=== PATIENT | male | born 1955 | race Caucasian/White ===

== ENCOUNTER → 2016-05-10 | Outpatient (CLI) | payer BC ==
[~2016-05-10] VITALS: Ht 180.3 cm; Wt 132.7 kg
[~2016-05-10] MED LIST: ASPI-461 PO; BUPRTAB51 PO; CMD5 PO; FLUT0.0529 NAE; LPT/20 PO; SERT1TAB72 PO; TELM5TAB2 PO; WARF7.5T PO
[2016-05-10 15:41] VITALS: BP 143/93; PULSE 76; Ht 180.3 cm; Wt 132.7 kg
== END | disposition home or self-care (01) ==
LOC: C.NEUR 14:18
PROVIDERS: ATTEND Internal Medicine Pulmonary Disease
DX: G47.30 Sleep apnea, unspecified (principal)

== ENCOUNTER → 2016-09-18 | Outpatient (CLI) | payer BC ==
--- NOTE | 2016-09-18 08:38 | DIAGNOSTIC IMAGING REPORT ---
RIGHT SHOULDER MIN 2 VIEWS ROUTINE CLINICAL HISTORY: RT SHOULDER PAIN Right pain COMPARISON: None. DISCUSSION: Significant degenerative change glenohumeral joint. Moderate degenerative change acromioclavicular joint. Retention pain greater tuberosity postoperative basis. Probable Hill-Sachs type deformity. Peripheral osteophytic change throughout. There is no evidence for soft tissue swelling. IMPRESSION: Degenerative and postoperative change. Electronically signed by: Gerson Aguirre M.D. 09/18/2016 8:37 AM Dictated Date/Time: 09/18/2016 8:36 AM
[2016-09-18 13:27] LABS: CALCIUM 9.2 mg/dl (8.5-10.1)
[2016-09-18 13:32] LABS: ALT/SGPT 66 U/L (12-78); BLOOD UREA NITROGEN 19 mg/dl (7-18); BUN/CREATININE RATIO 19.1 (10-20); CARBON DIOXIDE 26 mmol/L (21-32); CHLORIDE 107 mmol/L (98-107); CHOLESTEROL 199 mg/dl (0-200); GLUCOSE 121 mg/dl (70-99); POTASSIUM 4.3 mmol/L (3.5-5.1); SODIUM 141 mmol/L (136-145); TRIGLYCERIDES 251 mg/dl (0-150); VERY LOW DENSITY LIPOPROT CALC 50 mg/dl
[2016-09-18 13:33] LABS: ESTIMATED AVERAGE GLUCOSE 120 mg/dl; HA1C FLAG Normal (Normal)
[2016-09-18 13:40] LABS: ALB/GLOB RATIO 1.2 (0.9-2); ALKALINE PHOSPHATASE 55 U/L (45-117); AST/SGOT 36 U/L (15-37); CHOLESTEROL/HDL RATIO 5.2; HDL CHOLESTEROL 38 mg/dl; LDL CHOLESTEROL CALCULATED 111 mg/dl
== END | disposition home or self-care (01) ==
LOC: C.RADPV 08:20
PROVIDERS: ATTEND Family Medicine
DX: M25.511 Pain in right shoulder (principal); I10 Essential (primary) hypertension; I48.91 Unspecified atrial fibrillation; E78.5 Hyperlipidemia, unspecified; F41.8 Other specified anxiety disorders; I82.409 Acute embolism and thrombosis of unspecified deep veins of unspecified lower extremity; M19.011 Primary osteoarthritis, right shoulder

== ENCOUNTER → 2017-03-18 | Outpatient (CLI) | payer BC ==
[2017-03-18 13:10] LABS: ALT/SGPT 80 U/L (12-78); BLOOD UREA NITROGEN 15 mg/dl (7-18); BUN/CREATININE RATIO 14.7 (10-20); CALCIUM 8.9 mg/dl (8.5-10.1); CARBON DIOXIDE 26 mmol/L (21-32); CHLORIDE 105 mmol/L (98-107); CHOLESTEROL 187 mg/dl (0-200); CREATININE 0.99 mg/dl (0.60-1.40); GLUCOSE 116 mg/dl (70-99); POTASSIUM 4.3 mmol/L (3.5-5.1); SODIUM 137 mmol/L (136-145)
[2017-03-18 13:14] LABS: ALB/GLOB RATIO 1.1 (0.9-2); ALKALINE PHOSPHATASE 61 U/L (45-117); AST/SGOT 38 U/L (15-37); CHOLESTEROL/HDL RATIO 5.1; HDL CHOLESTEROL 37 mg/dl; LDL CHOLESTEROL CALCULATED 94 mg/dl; TRIGLYCERIDES 282 mg/dl (0-150); VERY LOW DENSITY LIPOPROT CALC 56 mg/dl
== END | disposition home or self-care (01) ==
LOC: C.LABPVFM 10:00
PROVIDERS: ATTEND Family Medicine
DX: Z51.81 Encounter for therapeutic drug level monitoring (principal); I10 Essential (primary) hypertension; I48.91 Unspecified atrial fibrillation; G47.30 Sleep apnea, unspecified; E78.5 Hyperlipidemia, unspecified; F41.8 Other specified anxiety disorders; Z79.01 Long term (current) use of anticoagulants

== ENCOUNTER 2017-07-07 13:22 | Emergency (ER) | payer BC ==
[~2017-07-07] VITALS: Ht 180.3 cm; Wt 129.3 kg
[~2017-07-07 13:22] MED LIST changes: -LPT/20 PO; +LPT20 PO
[2017-07-07 13:38] VITALS: BP 215/101; PULSE 81; TEMP 36.6; O2SAT 94; Ht 180.3 cm; Wt 129.3 kg
== END 2017-07-07 16:09 | disposition left against medical advice (07) ==
LOC: C.EDB 13:25
DX: R51 Headache (principal); Z53.21 Procedure and treatment not carried out due to patient leaving prior to being seen by health care provider

== ENCOUNTER → 2017-10-29 | Outpatient (CLI) | payer BC ==
[~2017-10-29] MED LIST changes: +ACET-1693 PO; -CMD5 PO; +DIPH25CA65 PO; +ENOX30IN4 SQ; +FIBER TAB PO; -FLUT0.0529 NAE; +FLUT0.15 INTNAS; +GABAPENTIN PO; +GLUC10007 PO; -LPT20 PO; +MULT-506 PO; +OXYC-57 PO; +ROSU5TAB11 PO; +TURMERIC PO; +VITAMIN D PO; -WARF7.5T PO; +WARF7.5T4 PO
[2017-10-29 12:46] LABS: BASO % 0.6 %; BASO ABS # 0.06 K/uL (0-0.2); EOS % 4.6 %; EOS ABS # 0.46 K/uL (0-0.5); HEMATOCRIT 43.7 % (42-52); HEMOGLOBIN 14.9 g/dL (14.0-18.0); IG# 0.09 K/uL (0.00-0.02); LYMPH % 20.3 %; LYMPH ABS # 2.02 K/uL (1.2-3.4); MEAN CELL VOLUME 93.6 fL (80-100); MEAN CORPUSCULAR HEMOGLOBIN 31.9 pg (25-34); MEAN CORPUSCULAR HGB CONC 34.1 g/dl (32-36); MONO % 8.2 %; MONO ABS # 0.81 K/uL (0.11-0.59); NEUT % 65.4 %; NEUT ABS # 6.49 K/uL (1.4-6.5); PLATELET COUNT 196 K/uL (130-400); RED CELL DISTRIBUTION WIDTH CV 13.8 % (11.5-14.5); RED CELL DISTRIBUTION WIDTH SD 46.4 fL (36.4-46.3); WHITE BLOOD COUNT 9.93 K/uL (4.8-10.8)
[2017-10-29 12:53] LABS: INR 2.3 (0.9-1.1); PTT PATIENT 39.7 SECONDS (21.0-31.0)
[2017-10-29 13:14] LABS: BLOOD UREA NITROGEN 19 mg/dl (7-18); CALCIUM 9.3 mg/dl (8.5-10.1); CARBON DIOXIDE 27 mmol/L (21-32); CREATININE 1.04 mg/dl (0.60-1.40); GLUCOSE 121 mg/dl (70-99); SODIUM 137 mmol/L (136-145)
== END | disposition home or self-care (01) ==
LOC: C.LABBC 09:22
PROVIDERS: ATTEND Orthopaedic Surgery
DX: Z01.812 Encounter for preprocedural laboratory examination (principal); M19.019 Primary osteoarthritis, unspecified shoulder

== ENCOUNTER → 2017-10-30 | Day surgery (SDC) | payer BC ==
[2017-10-29 13:14] VITALS: Ht 180.3 cm; Wt 131.8 kg
[~2017-10-30] VITALS: Ht 180.3 cm; Wt 131.8 kg
[~2017-10-30] MED LIST changes: +ACETAMINOPHEN 1000 MG/100 ML IV IV ONE; +ACETAMINOPHEN IV 1,000 MG in EMPTY BAG 0 ML IV ONE; +ATROPINE SULFATE 0.1 MG/ML 5ML SYR IV PRN; +CEFAZOLIN 1000MG IV PUSH 7.5 ML IV SCH; +CEFAZOLIN 3000MG IV PUSH 22.5 ML IV STA; +DEXAMETHASONE SOD INJ 4 MG/ML VIAL ONE; +EpHEDrine SULFATE INJ 50 MG/ML AMP IV PRN; +EpINEphrine INJ 1MG/ML AMP 1 MG/ML AMP ONE; +FENTANYL CITRATE INJ 50 MCG/1 ML 2 ML VIAL ONE; +LACTATED RINGER'S 1000ML 1,000 ML IV SCH; +LIDOCAINE HCL 2% 2 ML VIAL (20MG/ML) ONE; +MIDAZOLAM HCL 1 MG/ML 2ML VIAL ONE; +ONDANSETRON INJ 2 MG/ML 2 ML VIAL IV PRN; +ONDANSETRON INJ 2 MG/ML 2 ML VIAL ONE; +OXYCODONE/ACETAMINOPHEN 5-325 TAB PO PRN; +PATIENT'S HEIGHT AND/OR WEIGHT NEEDED SCH; +PHENYLEPHRINE 100MCG/ML 5ML SYR IV PRN; +PROPOFOL IV EMULSION 10 MG/ML 20 ML VIAL ONE; +ROPIVACAINE 0.5% 5 MG/ML 30 ML VIAL ONE; +SCOPOLAMINE 1.5 MG TDSY TD ONE; +SODIUM CHLORIDE 0.9% 1000ML 1,000 ML IV SCH
--- NOTE | 2017-10-30 12:12 | History & Physical Bridge Note ---
H&P Re-Evaluation Bridge Note: I have examined the patient, reviewed the History & Physical and in the interval since the performance of the History & Physical I have noted the following changes of clinical significance: No changes noted
--- NOTE | 2017-10-30 13:55 | [facility] Post Operative Brief Note ---
Immediate Operative Summary Operative Date Oct 30, 2017. Pre-Operative Diagnosis Right Shoulder Hematoma Post-Operative Diagnosis Same Procedure(s) Performed Right Shoulder Hematoma Evacuation Surgeon Dr. August [employer] Plant Operator Surgeon(s) Sean North PA-C Estimated Blood Loss 5 ml Findings Consistent with Post-Op Diagnosis Specimens None Anesthesia Type General
--- NOTE | 2017-10-30 14:08 | Discharge Instructions-SurgCtr ---
Discharge Instructions Date of Service Oct 30, 2017. Visit Reason for Visit: Right Shoulder Hematoma Discharge Discharge Diagnosis / Problem: SAME ABOVE Discharge Goals Goal(s): Decrease discomfort, Improve function Medications Stopped Medications Name(s): warfarin, lovenox Restart Stopped Medication(s): MAY CONTINUE 10/30/2017 Activity Recommendations Activity Limitations: as noted below Lifting Limitations: until after follow-up appointment Shower/Bathe: tomorrow Anesthesia . Post Anesthesia Instructions: If you have had General Anesthesia or IV Sedation: * Do not drive today. * Resume driving when surgeon permits. * Do not make important decisions or sign legal documents today. * Call surgeon for: 1. Temperature elevations greater than 101 degrees F. 2. Uncontrollable pain. 3. Excessive bleeding. 4. Persistent nausea and vomiting. 5. Medication intolerance (nausea, vomiting or rash). * For nausea and vomiting use only clear liquids such as: tea, soda, bouillon until nausea subsides, then gradually increase diet as tolerated. * If you have any concerns or questions, call your surgeon's office. If physician is unavailable and it is an emergency, call 911 or go to the nearest emergency room. . Instructions / Follow-Up Instructions / Follow-Up MEDICATIONS: * Resume previous medications unless instructed otherwise by your surgeon. * Always take pain medication on a full stomach or with food to avoid upset stomach. * Do not drink alcohol or drive while taking narcotics. * Ibuprofen or Tylenol may be taken if narcotic not needed. SPECIAL CARE INSTRUCTIONS: __ None _X_ Keep extremity elevated and iced x 48 hours; apply ice 20-30 minutes 8-10 times/day. May remove at night. _X_ Sling (MAY REMOVE IN 1 WEEK OR WHEN YOU ARE 3 WEEKS OUT FROM THE DAY OF SHOULDER REPLACEMENT) _X_24 hrs/day __ Remove at night __ Shoulder Immobilizer __ 24 hrs/day __ Remove at night X__ Dressing __ Maintain until seen in office, may shower with plastic over site _X_ Remove dressings in 24-48 hours and then may shower _X_ Cover incisions with band-aids after showering __ Do not remove steri-strips Call physician if chills or temperature rises above 102 degrees or pain unrelieved by prescribed pain medications at . . Diet Recommendations Home Diet: no limitations Fluid Restriction: None Procedures Procedures Performed: Right Shoulder Hematoma Evacuation Pending Studies Studies pending at discharge: no Work Instructions Return To Work: after follow-up Medical Emergencies . Who to Call and When: Medical Emergencies: If at any time you feel your situation is an emergency, please call 911 immediately. . Non-Emergent Contact Non-Emergency issues call your: Surgeon Call Non-Emergent contact if: your pain is not controlled, wound has increased drainage, wound has increased redness . . "Provider Documentation" section prepared by Justin North. .
[2017-10-30] MEDS: FENTANYL CITRATE INJ 50 MCG/1 ML 2 ML VIAL IV PRN ×4 (14:18→14:35)
[2017-10-30] MEDS: HYDROmorphone INJ 1 MG/ML SYR IV PRN ×4 (14:51→15:20)
--- NOTE | 2017-10-30 15:15 | OPERATIVE REPORT ---
DATE OF OPERATION: 10/30/2017 PREOPERATIVE DIAGNOSIS: Hematoma of the right shoulder. POSTOPERATIVE DIAGNOSIS: Hematoma of the right shoulder. PROCEDURE: Evacuation of hematoma of the right shoulder. SURGEON: Dr. Giovani August. VICE PRESIDENT OF CONSULTING SERVICES: Justin North PA-C, whose assistance was necessary for retraction and closure. ANESTHESIA: General. COMPLICATIONS: None. CONDITION: Stable to PACU. INDICATIONS: Ty is a pleasant 62-year-old male who underwent a reverse right shoulder arthroplasty about 2 weeks ago. He is on Coumadin. Unfortunately, postoperatively he developed a large hematoma in his right shoulder. It then started draining. I decided to take him to the operating room to do evacuation of the hematoma. DESCRIPTION OF PROCEDURE: On 10/30/2017, he arrived at [facility] for the above procedure. He was seen in the preoperative holding and the operative extremity was identified and signed. He was taken back to the operating room, laid on the table in supine position and given general anesthesia. He was then put into the beach chair position. The right shoulder was prepped and draped in sterile fashion. Time-out was done and the patient's operative extremity was properly identified. All the catrachito were removed. Then, the middle third of the incision was opened up. I was able to do a large evacuation of the hematoma. There was a large amount of hematoma and blood clots that were evacuated from the wound. Three liters of normal saline solution and pulse lavage was used to ensure the hematoma was completely evacuated. The shoulder was put through a full range of motion and everything felt stable. There was no further bleeding. The incision was then closed with 2-0 Vicryl suture and catrachito. He was then placed in a soft dressing and a regular arm sling. He was then extubated, transferred to a [facility] and taken to the postanesthesia care unit in stable condition. He tolerated the procedure well. I attest to the content of the Intraoperative Record and any orders documented therein. Any exception s are noted below.
--- NOTE | 2017-10-30 15:42 | Anesthesia Progress Nt - [facility] ---
Anesthesia Post Op Note Date & Time Oct 30, 2017 at 15:42 Vital Signs Pain Intensity: 6 Vital Signs Past 12 Hours Date Time Temp Pulse Resp B/P (MAP) Pulse Ox O2 Delivery O2 Flow Rate FiO2 10/30/17 15:21 114/60 10/30/17 15:19 76 13 10/30/17 15:19 73 13 95 10/30/17 15:16 132/69 10/30/17 15:14 72 15 94 10/30/17 15:14 72 15 10/30/17 15:11 116/91 10/30/17 15:09 67 15 93 10/30/17 15:09 68 15 10/30/17 15:06 113/67 10/30/17 15:04 68 14 10/30/17 15:04 67 14 93 10/30/17 15:01 112/82 10/30/17 14:59 68 11 95 10/30/17 14:59 69 11 10/30/17 14:58 70 14 10/30/17 14:58 69 14 94 10/30/17 14:56 125/67 10/30/17 14:53 74 16 10/30/17 14:53 76 16 97 10/30/17 14:51 140/59 10/30/17 14:48 70 21 95 10/30/17 14:48 71 21 10/30/17 14:46 124/62 10/30/17 14:43 70 13 10/30/17 14:43 69 13 96 10/30/17 14:42 79 15 122/60 96 10/30/17 14:42 81 15 10/30/17 14:37 69 16 10/30/17 14:37 68 16 95 18 14:36 122/89 10/30/17 14:32 73 20 18 14:32 73 20 96 18 14:31 134/72 18 14:27 71 15 96 18 14:27 71 15 18 14:26 134/67 218 14:23 68 11 99 218 14:23 69 11 18 14:21 134/77 10/30/17 14:18 74 16 18 14:18 75 16 100 18 14:17 70 16 100 10/30/17 14:17 70 16 10/30/17 14:16 142/72 10/30/17 14:12 72 20 10/30/17 14:12 73 20 99 10/30/17 14:11 137/79 10/30/17 14:08 74 17 100 10/30/17 14:08 75 17 10/30/17 14:06 152/82 10/30/17 14:04 155/79 10/30/17 14:03 36.3 76 12 155/79 99 Mask 10 10/30/17 12:06 37.0 94 20 158/94 (115) 95 Room Air Notes Mental Status: alert / awake / arousable, participated in evaluation Pt Amnestic to Procedure: Yes Nausea / Vomiting: adequately controlled Pain: adequately controlled Airway Patency, RR, SpO2: stable & adequate BP & HR: stable & adequate Hydration State: stable & adequate Anesthetic Complications: no major complications apparent
[2017-10-30 15:51] VITALS: TEMP 36.5
[2017-10-30 16:29] VITALS: BP 157/87; PULSE 70; O2SAT 94
== END | disposition home or self-care (01) ==
LOC: X.SURG 11:49
PROVIDERS: ATTEND Orthopaedic Surgery
DX: M96.840 Postprocedural hematoma of a musculoskeletal structure following a musculoskeletal system procedure (principal); I10 Essential (primary) hypertension; F32.9 Major depressive disorder, single episode, unspecified; D68.2 Hereditary deficiency of other clotting factors; I48.91 Unspecified atrial fibrillation; G47.33 Obstructive sleep apnea (adult) (pediatric); Z91.040 Latex allergy status; Z88.5 Allergy status to narcotic agent; Z79.01 Long term (current) use of anticoagulants; Z79.899 Other long term (current) drug therapy; Z79.82 Long term (current) use of aspirin; Z86.73 Personal history of transient ischemic attack (TIA), and cerebral infarction without residual deficits; Z86.718 Personal history of other venous thrombosis and embolism

== ENCOUNTER → 2017-11-04 | Outpatient (CLI) | payer BC ==
[~2017-11-04] MED LIST changes: -ACETAMINOPHEN 1000 MG/100 ML IV IV ONE; -ACETAMINOPHEN IV 1,000 MG in EMPTY BAG 0 ML IV ONE; -ATROPINE SULFATE 0.1 MG/ML 5ML SYR IV PRN; -CEFAZOLIN 1000MG IV PUSH 7.5 ML IV SCH; -CEFAZOLIN 3000MG IV PUSH 22.5 ML IV STA; -DEXAMETHASONE SOD INJ 4 MG/ML VIAL ONE; -EpHEDrine SULFATE INJ 50 MG/ML AMP IV PRN; -EpINEphrine INJ 1MG/ML AMP 1 MG/ML AMP ONE; -FENTANYL CITRATE INJ 50 MCG/1 ML 2 ML VIAL ONE; -LACTATED RINGER'S 1000ML 1,000 ML IV SCH; -LIDOCAINE HCL 2% 2 ML VIAL (20MG/ML) ONE; -MIDAZOLAM HCL 1 MG/ML 2ML VIAL ONE; -ONDANSETRON INJ 2 MG/ML 2 ML VIAL IV PRN; -ONDANSETRON INJ 2 MG/ML 2 ML VIAL ONE; -OXYCODONE/ACETAMINOPHEN 5-325 TAB PO PRN; -PATIENT'S HEIGHT AND/OR WEIGHT NEEDED SCH; -PHENYLEPHRINE 100MCG/ML 5ML SYR IV PRN; -PROPOFOL IV EMULSION 10 MG/ML 20 ML VIAL ONE; -ROPIVACAINE 0.5% 5 MG/ML 30 ML VIAL ONE; -SCOPOLAMINE 1.5 MG TDSY TD ONE; -SODIUM CHLORIDE 0.9% 1000ML 1,000 ML IV SCH
--- NOTE | 2017-11-04 13:16 | DIAGNOSTIC IMAGING REPORT ---
R VENOUS DOPPLER UPR EXT UNIL HISTORY: Pain. Edema. HX OF DVT'S POSSIBLE DVT RIGHT ELBOW AREA COMPARISON STUDY: None. FINDINGS: The internal jugular vein is patent. There is normal flow within the subclavian vein. There is normal flow and compressibility within the left axillary, basilic, brachial, radial, ulnar, and visualized cephalic veins. IMPRESSION: No DVT within the upper extremity. The above report was generated using voice recognition software. It may contain grammatical, syntax or spelling errors. Electronically signed by: Gerson Aguirre M.D. 11/04/2017 1:14 PM Dictated Date/Time: 11/04/2017 1:12 PM
== END | disposition home or self-care (01) ==
LOC: C.ULTRBC 10:22
PROVIDERS: ATTEND Orthopaedic Surgery
DX: Z86.718 Personal history of other venous thrombosis and embolism (principal)

== ENCOUNTER 2019-12-14 08:01 | Observation (INO) ==
[2019-12-14] MEDS ORDERED: NITROGLYCERIN SL 0.4 MG/TAB TAB SL PRN (08:31)
[2019-12-14 08:55] LABS: Basophils # (auto) 0.03 K/uL (0-0.2); Basophils % (auto) 0.5 %; Eosinophils # (auto) 0.26 K/uL (0-0.5); Hematocrit (blood only) 46.2 % (42-52); Hemoglobin 15.9 g/dL (14.0-18.0); Immature Granulocytes # (auto) 0.01 K/uL (0.00-0.02); Immature Granulocytes % (auto) 0.2 %; Lymphocytes # (auto) 2.03 K/uL (1.2-3.4); Lymphocytes % (auto) 30.9 %; Mean Corpuscular Hemoglobin 31.7 pg (25-34); Mean Corpuscular Hgb Conc 34.4 g/dL (32-36); Mean Corpuscular Volume 92.2 fL (80-100); Mean Platelet Volume 11.7 fL (7.4-10.4); Monocytes # (auto) 0.73 K/uL (0.11-0.59); Monocytes % (auto) 11.1 %; Neutrophils # (auto) 3.51 K/uL (1.4-6.5); Neutrophils % (auto) 53.3 %; Platelet Count 159 K/uL (130-400); RDW Coefficient of Variation 13.3 % (11.5-14.5); RDW Standard Deviation 44.4 fL (36.4-46.3); Red Blood Count 5.01 M/uL (4.7-6.1); White Blood Count 6.57 K/uL (4.8-10.8)
--- NOTE | 2019-12-14 08:55 | XRay Report ---
XR chest 1V portable CLINICAL HISTORY: Chest Pain COMPARISON STUDY: Chest radiograph September 29, 2017. FINDINGS: Right shoulder arthroplasty is incidentally noted. There is no pneumothorax or pleural effu aime. There is no consolidation or evidence for pulmonary edema. Moderate cardiomegaly is unchanged. There is pulmonary vascular congestion. IMPRESSION: Cardiomegaly. Pulmonary vascular congestion without overt pulmonary edema. ACT 112: Negative or not required by law. Electronically signed by: Jasmeet Pires M.D. 12/14/2019 8:53 AM
[2019-12-14 09:09] LABS: INR 2.2 (0.9-1.1); Partial Thromboplastin Ratio 1.4; Partial Thromboplastin Time 39.9 Seconds (21.0-31.0); Prothrombin Time 22.4 Seconds (9.0-12.0)
[2019-12-14 09:11] LABS: Alanine Aminotransferase 75 U/L (12-78); Albumin Level 3.4 gm/dl (3.4-5.0); Aspartate Aminotransferase 43 U/L (15-37); BUN Creatinine Ratio 17.1 (10-20); Blood Urea Nitrogen 17 mg/dl (7-18); Calcium 9.3 mg/dl (8.5-10.1); Carbon Dioxide 25 mmol/L (21-32); Chloride 106 mmol/L (98-107); Creatinine Clr Calc Pharmacy 107.9 ml/min; Est GFR (African American) 94.2; Est GFR (Non-African American) 81.3; Glucose 121 mg/dl (70-99); Lipase 216 U/L (73-393); Potassium 4.3 mmol/L (3.5-5.1); Sodium 138 mmol/L (136-145)
[2019-12-14 09:12] LABS: D Dimer 1780 ug/L FEU (0-500)
[2019-12-14 09:16] LABS: Albumin Globulin Ratio 0.9 (0.9-2); Alkaline Phosphatase 60 U/L (45-117); Bilirubin,Total 0.5 mg/dl (0.2-1); Creatine Kinase 99 U/L (39-308); Creatine Kinase MB 1.7 ng/ml (0.5-3.6); Globulin 3.8 gm/dl (2.5-4.0); Total Protein 7.2 gm/dl (6.4-8.2); Troponin I < 0.015 ng/ml (0-0.045)
--- NOTE | 2019-12-14 09:18 | Emergency Department Note ---
History of Present Illness General Chief complaint: Chest Pain Stated complaint: CHEST PAINS,SOB Time Seen by Provider: 12/14/19 08:08 History of Present Illness Maximum Pain Intensity: 3 64-year-old male, history of factor V Leiden, hypertension, diabetes, hyperlipidemia (metabolic syndrome) who presents to the emergency department with complaint of central chest discomfort and shortness of breath upon awakening this morning. The patient reports that at approximately 5:30 AM, he got up to go to the restroom. When he got back to his bedroom, he reported feeling notable shortness of breath. The patient does use BiPAP at nighttime. The patient had no relief of his shortness of breath with the BiPAP. He then started to develop central chest discomfort and pain that he describes as pressure. He denies any pain radiating into the neck, shoulder or back. The patient reports that he has been on Coumadin for many years. He does not get his INRs checked, reporting high cost due to poor insurance coverage. The patient purchased a voice to check his INR, and reports that he usually runs around 2.4. The patient denies prior history of pulmonary emboli or myocardial infarction. He has a very strong family history of coronary artery disease, with his father and grandfather dying in their 50s as a result of myocardial infarctions. The patient reports that his family has been extensively checked for factor V Leiden and have been normal. The patient currently rates his discomfort a 5 out of 10 on my exam. Home Medications Home Medications Medication Instructions Recorded Confirmed Type glucosamine HCl 750 mg tablet 1,500 mg PO HS tab 10/12/18 12/14/19 History aspirin 81 mg tablet,delayed 81 mg PO BID tab 02/01/19 12/14/19 History release diphenhydramine HCl 25 mg tablet 25 mg PO HS tab 02/01/19 12/14/19 History metformin 500 mg PO QAM 04/25/19 12/14/19 History bupropion HCl 150 mg PO QAM 12/14/19 12/14/19 History rosuvastatin 5 mg PO 2XWK 12/14/19 12/14/19 History sertraline 100 mg PO HS 12/14/19 12/14/19 History telmisartan 30 mg PO QAM 12/14/19 12/14/19 History warfarin 7.5 mg PO HS 12/14/19 12/14/19 History Allergies Allergy/AdvReac Type Severity Reaction Status Date / Time nickel Allergy Mild RASH Verified 12/14/19 08:51 latex AdvReac Mild RASH, Verified 12/14/19 08:51 ITCHING oxycodone AdvReac Mild rapid hr Verified 12/14/19 08:51 Past Med/Surg History Medical History AF (paroxysmal atrial fibrillation) Cellulitis of left foot Depression with anxiety DM (diabetes mellitus), type 2 DVT (deep venous thrombosis) Factor V Leiden mutation HTN (hypertension) Hyperlipidemia Sleep apnea Trigeminal neuralgia Surgical History Hx of carpal tunnel repair Hx of knee surgery Hx of oral surgery Hx of shoulder replacement Hx of shoulder surgery Hx of sinus surgery Family History Father Myocardial infarction Denies family history of Ovarian cancer Prostate cancer Breast cancer Colorectal cancer Social History Smoking Status: Former smoker Tobacco Type: Cigarettes Hx Alcohol Use: No Hx Substance Use: No Preferred Language: Macanese Investment Fund Manager Required: No Beliefs That Will Affect Care: None marital status: Current Living Situation: Spouse current occupational status: employed Other Information That Helps Us Care for You: No Feels Safe at Home: Yes Safety Concerns: Feels Safe At This Time caffeine: Yes Dental Care, Regularly: No Physical Activity Frequency: 1-2 Times per Week Seatbelt Use: always Sunscreen Use: No Review of Systems 10 system review was performed and was negative except for pertinent positives and negatives as indicated in history of present illness Physical Exam Vital Signs Vital Signs - 24 hr 12/14/19 08:04 12/14/19 08:45 12/14/19 09:03 Temperature 36.5 C Temperature Source Oral Pulse Rate 66 Pulse Rate [Apical] 66 Respiratory Rate 20 20 Blood Pressure 202/110 H Blood Pressure [Left Arm] 198/128 H Blood Pressure Mean 140 Blood Pressure Mean [Left Arm] 151 Pulse Oximetry 94 96 96 Oxygen Delivery Method Room Air Room Air Room Air Sepsis Recent Fever Within 48 Hours No Sepsis New/Unexplained Change in Mental Status N/A Sepsis Action Taken by Nursing No Action Required 12/14/19 10:02 12/14/19 10:44 12/14/19 11:05 Temperature Temperature Source Pulse Rate Pulse Rate [Apical] 61 54 L 62 Respiratory Rate 20 20 16 Blood Pressure Blood Pressure [Left Arm] 149/87 H 178/93 H 161/84 H Blood Pressure Mean Blood Pressure Mean [Left Arm] 107 121 109 Pulse Oximetry 94 95 95 Oxygen Delivery Method Room Air Room Air Room Air Sepsis Recent Fever Within 48 Hours Sepsis New/Unexplained Change in Mental Status Sepsis Action Taken by Nursing 12/14/19 11:20 12/14/19 12:15 12/14/19 12:33 Temperature Temperature Source Pulse Rate Pulse Rate [Apical] 67 64 67 Respiratory Rate 20 16 20 Blood Pressure Blood Pressure [Left Arm] 174/102 H 174/108 H 167/108 H Blood Pressure Mean Blood Pressure Mean [Left Arm] 126 130 127 Pulse Oximetry 97 95 96 Oxygen Delivery Method Room Air Room Air Room Air Sepsis Recent Fever Within 48 Hours Sepsis New/Unexplained Change in Mental Status Sepsis Action Taken by Nursing CONSTITUTIONAL: Healthy and well nourished. Alert and oriented X 3. Patient appears in mild to moderate discomfort. HEENT: Normocephalic, atraumatic. Pupils equal, round and reactive. No scleral icterus or conjunctival injection/pallor. Mucous membranes are not dry. NECK: Full active range of motion without discomfort. No obvious JVD or carotid bruits. LYMPHATICS: No cervical chain adenopathy. RESPIRATORY: Clear to auscultation bilaterally with no wheezing, crackles, rhonchi or stridor. Mildly worsened discomfort with deep breathing. CARDIOVASCULAR: Regular rate and rhythm with no murmurs, rubs or gallops. GASTROINTESTINAL: Bowel sounds present in all quadrants. Abdomen is soft and nontender to palpation. No hepatosplenomegaly. Negative CVA tenderness. MUSCULOSKELETAL: Full range of motion of all joints without discomfort. INTEGUMENTARY: No rash or other significant dermatologic conditions noted. HEMATOLOGIC: No ecchymosis or petechiae. PSYCHIATRIC: Positive affect. NEUROLOGIC: No focal neurologic deficits noted. Course Course Patient history and physical exam were performed. Nurse's notes were reviewed. Vital signs were reviewed, showing the patient reports that he did not take his morning blood pressure medicine. Prior to my exam, an ECG was performed, showing a normal sinus rhythm of 65 bpm without any other concerning findings. An order was placed for cardiac monitoring while in the emergency department. I V access was established, and labs were drawn. The patient was administered aspirin. A nitroglycerin trial was initiated, however the patient could only tolerate 1 dose as it caused headache. It did not improve his chest pain. The case was also discussed with Dr. Kerr, ED attending physician, who recommended administering IV hydralazine and the patient's morning dose of telmisartan. Review of labs showed that CBC is grossly normal. CMP shows an elevated AST and glucose, otherwise remaining labs were grossly normal. Urinalysis was also ordered, but the patient was unable to provide a urine sample while in the emergency department. D-dimer was elevated, prompting chest CT angiography did not show evidence for pulmonary emboli, consolidations, pericarditis or other acute findings. Repeat ECG and troponin at 2 hours continues to remain normal. Findings were discussed with the patient. The patient does have a calculated HEART score of 3-4, and after further discussion with Dr. Bloom, it was agreed that the patient should undergo further cardiac rule out with the hospitalist se nolan. The case was discussed with Dr. Higgins, [facility] hospitalist, who came to the emergency department to evaluate the patient. See his dictation for further treatment and final disposition. Administered Medications Acetaminophen (Acetaminophen 325 Mg Tab) 650 mg PO Q4H PRN PRN Reason: Pain or Fever Stop: 01/13/20 15:36 Last Admin: 12/14/19 17:24 Dose: 650 mg Documented by: [id number] Insulin Aspart (Insulin Aspart 100 Units/Ml 3 Ml Pen) 0 units SC ACHS REBECCA Stop: 01/13/20 16:29 Last Admin: 12/14/19 18:01 Dose: Not Given Documented by: [id number] Cosigned by: [id number] Discontinued Medications Aspirin (Aspirin 81 Mg Chew) 243 mg PO NOW STA Stop: 12/14/19 13:52 Last Admin: 12/14/19 16:22 Dose: Not Given Documented by: [id number] Hydralazine HCl (Hydralazine Hcl 20 Mg/Ml Vial) 10 mg IV NOW STA Stop: 12/14/19 09:38 Last Admin: 12/14/19 11:04 Dose: 10 mg Documented by: [id number] Ioversol (Optiray 320 125ml) 120 ml IV ONCE ONE Stop: 12/14/19 10:03 Last Admin: 12/14/19 10:04 Dose: 120 ml Documented by: [id number] Nitroglycerin (Nitroglycerin Sl 0.4 Mg/Tab Tab) 0.4 mg SL UD PRN PRN Reason: Chest Pain Stop: 01/13/20 08:30 Last Admin: 12/14/19 09:03 Dose: 0.4 mg Documented by: [id number] Telmisartan (Telmisartan 20 Mg Tab) 20 mg PO NOW STA Stop: 12/14/19 09:38 Last Admin: 12/14/19 11:03 Dose: 20 mg Documented by: [id number] Medical Decision Making Medical Records Attestation: I reviewed the patient's medical records. Home Medications Current Medication List: was personally reviewed by me Laboratory Data Attestation: I reviewed the patient's lab results. Result diagrams: 12/14/19 08:30 12/14/19 08:30 Lab Results 12/14/19 12/14/19 12/14/19 Range/Units 08:30 08:30 08:30 WBC 6.57 (4.8-10.8) K/uL RBC 5.01 (4.7-6.1) M/uL Hgb 15.9 (14.0-18.0) g/dL Hct 46.2 (42-52) % MCV 92.2 (80-100) fL MCH 31.7 (25-34) pg MCHC 34.4 (32-36) g/dL RDW Std Deviation 44.4 (36.4-46.3) fL RDW Coeff of Garret 13.3 (11.5-14.5) % Plt Count 159 (130-400) K/uL MPV 11.7 H (7.4-10.4) fL Immature Gran % (Auto) 0.2 % Neut % (Auto) 53.3 % Lymph % (Auto) 30.9 % Coal % (Auto) 11.1 % Eos % (Auto) 4.0 % Baso % (Auto) 0.5 % Neut # (Auto) 3.51 (1.4-6.5) K/uL Lymph # (Auto) 2.03 (1.2-3.4) K/uL Coal # (Auto) 0.73 H (0.11-0.59) K/uL Eos # (Auto) 0.26 (0-0.5) K/uL Baso # (Auto) 0.03 (0-0.2) K/uL Immature Gran # (Auto) 0.01 (0.00-0.02) K/uL PT 22.4 H (9.0-12.0) Seconds INR 2.2 H (0.9-1.1) APTT 39.9 H (21.0-31.0) Seconds PTT Ratio 1.4 D-Dimer 1780 H* (0-500) ug/L FEU Sodium 138 (136-145) mmol/L Potassium 4.3 (3.5-5.1) mmol/L Chloride 106 (98-107) mmol/L Carbon Dioxide 25 (21-32) mmol/L Anion Gap 7.0 (3-11) BUN 17 (7-18) mg/dl Creatinine 0.99 (0.6-1.4) mg/dl Est Cr Clr Drug Dosing 107.9 ml/min Est GFR ( Amer) 94.2 Est GFR (Non-Af Amer) 81.3 BUN/Creatinine Ratio 17.1 (10-20) Glucose 121 H (70-99) mg/dl Calcium 9.3 (8.5-10.1) mg/dl Total Bilirubin 0.5 (0.2-1) mg/dl AST 43 H (15-37) U/L ALT 75 (12-78) U/L Alkaline Phosphatase 60 (45-117) U/L Total Creatine Kinase 99 (39-308) U/L CK-MB (CK-2) 1.7 (0.5-3.6) ng/ml CK/CKMB % Calc 1.7 (0-3.0) Troponin I < 0.015 (0-0.045) ng/ml Total Protein 7.2 (6.4-8.2) gm/dl Albumin 3.4 (3.4-5.0) gm/dl Globulin 3.8 (2.5-4.0) gm/dl Albumin/Globulin Ratio 0.9 (0.9-2) Lipase 216 (73-393) U/L 12/14/19 Range/Units 10:46 WBC (4.8-10.8) K/uL RBC (4.7-6.1) M/uL Hgb (14.0-18.0) g/dL Hct (42-52) % MCV (80-100) fL MCH (25-34) pg MCHC (32-36) g/dL RDW Std Deviation (36.4-46.3) fL RDW Coeff of Garret (11.5-14.5) % Plt Count (130-400) K/uL MPV (7.4-10.4) fL Immature Gran % (Auto) % Neut % (Auto) % Lymph % (Auto) % Coal % (Auto) % Eos % (Auto) % Baso % (Auto) % Neut # (Auto) (1.4-6.5) K/uL Lymph # (Auto) (1.2-3.4) K/uL Coal # (Auto) (0.11-0.59) K/uL Eos # (Auto) (0-0.5) K/uL Baso # (Auto) (0-0.2) K/uL Immature Gran # (Auto) (0.00-0.02) K/uL PT (9.0-12.0) Seconds INR (0.9-1.1) APTT (21.0-31.0) Seconds PTT Ratio D-Dimer (0-500) ug/L FEU Sodium (136-145) mmol/L Potassium (3.5-5.1) mmol/L Chloride (98-107) mmol/L Carbon Dioxide (21-32) mmol/L Anion Gap (3-11) BUN (7-18) mg/dl Creatinine (0.6-1.4) mg/dl Est Cr Clr Drug Dosing ml/min Est GFR ( Amer) Est GFR (Non-Af Amer) BUN/Creatinine Ratio (10-20) Glucose (70-99) mg/dl Calcium (8.5-10.1) mg/dl Total Bilirubin (0.2-1) mg/dl AST (15-37) U/L ALT (12-78) U/L Alkaline Phosphatase (45-117) U/L Total Creatine Kinase (39-308) U/L CK-MB (CK-2) (0.5-3.6) ng/ml CK/CKMB % Calc (0-3.0) Troponin I < 0.015 (0-0.045) ng/ml Total Protein (6.4-8.2) gm/dl Albumin (3.4-5.0) gm/dl Globulin (2.5-4.0) gm/dl Albumin/Globulin Ratio (0.9-2) Lipase (73-393) U/L Imaging Data Attestation: I personally reviewed and interpreted this imaging study as mic addison: My Impression: My interpretation of a portable chest x-ray does not show any consolidations or pneumothorax. Cardiomegaly is noted without obvious failure pattern, although pulmonary vascular congestion is noted. CT angiography of the chest did not show any evidence for pulmonary emboli, pneumonia, pneumothorax or other acute findings. Radiologist reports were also reviewed. Radiologist's Impression: XR chest 1V portable CLINICAL HISTORY: Chest Pain COMPARISON STUDY: Chest radiograph September 29, 2017. FINDINGS: Right shoulder arthroplasty is incidentally noted. There is no pneumothorax or pleural effusion. There is no consolidation or evidence for pulmonary edema. Moderate cardiomegaly is unchanged. There is pulmonary vascular congestion. IMPRESSION: Cardiomegaly. Pulmonary vascular congestion without overt pulmonary edema. CT ANGIOGRAPHY OF THE CHEST, PULMONARY EMBOLUS PROTOCOL CLINICAL HISTORY: Shortness of breath and chest pain. Evaluate for pulmonary embolus. COMPARISON STUDY: Chest radiograph December 14, 2019 and September 29, 2017.. TECHNIQUE: Following IV administration of 120 mL of Optiray-320, helical axial images of the chest were obtained utilizing the pulmonary embolus protocol. Maximal intensity projections and sagittal and coronal reformats were viewed on an independent 3D workstation. IV contrast was administered without complication. Automated exposure control was utilized for the study. A dose lowering technique was utilized adhering to the principles of ALARA. CT DOSE: 889.50 mGy.cm FINDINGS: No pulmonary embolus is identified although the segmental and subsegmental pulmonary arteries within the lower lobes are suboptimally assessed due to respiratory motion. There is mild dilatation of the central pulmonary arteries. Moderate cardiomegaly is noted. There is no pericardial effusion. There is moderate coronary artery calcification. Calcified right hilar lymph nodes are noted. There is a calcified granuloma within the right lower lobe. Lungs are suboptimally assessed given respiratory motion but no consolidation is identified. There is no pneumothorax or pleural effusion. Bony thorax is unre markable. Fatty infiltration of the liver is noted. IMPRESSION: 1. No pulmonary embolus identified although lower lobe pulmonary arteries suboptimally assessed given respiratory motion. 2. Moderate cardiomegaly. 3. No acute findings within the chest. 4. Fatty liver. ECG Data Attestation: I personally reviewed and interpreted this ECG as follows: Indication: + chest pain and + SOB/dyspnea Rate (beats per minute): 65 Rhythm: + normal sinus ECG Intervals/blocks: + Normal QRS, + Normal QT and + Normal [place] ECG [place]: + Normal ECG ST segments: + Normal ST segments Comparison ECG Date: from (09/29/2017) Change: no significant change Additional Comments: A second ECG at 2 hours was performed, and personally reviewed by me; however, this ECG could not be found at the time of dictation, and also was not electronically transmitted to the electronic medical records. Blood Pressure Blood Pressure Findings: Elevated blood pressure Blood Pressure Disposition: further management by hospitalist CHACHO Narrative Cardiac monitoring: An order was placed for continuous cardiac monitoring. The monitor shows a rate of 65 with a normal sinus rhythm. night monitor history was reviewed throughout the evaluation, and no dysrhythmias were noted. Patient presents to the emergency department with complaint of chest pain and shortness of breath. The patient does have a significant history of factor V Leiden. Fortunately, no pulmonary emboli are noted on today's CT angiography of the chest. Patient has also had 2 normal serial ECGs and troponin at 2 hours apart, however the patient does have a significant increased risk with multiple comorbidities and strong family history. I do feel that the patient warrants further hospitalist evaluation and cardiac rule out. Impression & Plan Hypertensive urgency, Metabolic syndrome, Central chest pain, SOB (shortness of breath) Discharge Plan Visit Data Chief Complaint: Chest Pain Stated Complaint: CHEST PAINS,SOB ED Provider: Art Bloom ED Midlevel Provider: Carlos A Sood Discharge Problem: Hypertensive urgency, Metabolic syndrome, Central chest pain, SOB (shortness of breath) Patient Disposition: Admitted As Inpatient Discharge Instructions Interventions: ED Discharge Assessment Last Done: 12/14/19 14:22
[2019-12-14] MEDS ORDERED: TELMISARTAN 20 MG TAB PO STA (09:37)
[2019-12-14] MEDS ORDERED: HydrALAZINE HCL 20 MG/ML VIAL IV STA (09:37)
[2019-12-14] MEDS ORDERED: OPTIRAY 320 125ml IV ONE (10:02)
--- NOTE | 2019-12-14 10:07 | CT Scan Report ---
CT ANGIOGRAPHY OF THE CHEST, PULMONARY EMBOLUS PROTOCOL CLINICAL HISTORY: Shortness of breath and chest pain. Evaluate for pulmonary embolus. COMPARISON STUDY: Chest radiograph December 14, 2019 and September 29, 2017.. TECHNIQUE: Following IV administration of 120 mL of Optiray-320, helical axial images of the chest we re obtained utilizing the pulmonary embolus protocol. Maximal intensity projections and sagittal and coronal reformats were viewed on an independent 3D workstation. IV contrast was administered withou t complication. Automated exposure control was utilized for the study. A dose lowering technique wa s utilized adhering to the principles of ALARA. CT DOSE: 889.50 mGy.cm FINDINGS: No pulmonary embolus is identified although the segmental and subsegmental pulmonary arter ies within the lower lobes are suboptimally assessed due to respiratory motion. There is mild dilatat ion of the central pulmonary arteries. Moderate cardiomegaly is noted. There is no pericardial effusi on. There is moderate coronary artery calcification. Calcified right hilar lymph nodes are noted. The re is a calcified granuloma within the right lower lobe. Lungs are suboptimally assessed given respir atory motion but no consolidation is identified. There is no pneumothorax or pleural effusion. Bony t horax is unremarkable. Fatty infiltration of the liver is noted. IMPRESSION: 1. No pulmonary embolus identified although lower lobe pulmonary arteries suboptimally assessed given respiratory motion. 2. Moderate cardiomegaly. 3. No acute findings within the chest. 4. Fatty liver. ACT 112: Negative or not required by law. Electronically signed by: Jasmeet Pires M.D. 12/14/2019 10:06 AM
--- NOTE | 2019-12-14 13:26 | History & Physical Report ---
Date of Service December 14, 2019 Assessment & Plan (1) Chest pain: Suspected secondary to hypertensive urgency rather than acute coronary syndrome given lack of EKG changes and negative troponin at 6 hours with 3 hours of pain. Repeat troponin @ 6pm to rule out OK. If negative troponin will arrange for echo stress tomorrow, given significant risk factors. HEART score 3 (low). (2) Hypertensive urgency: Possibly stress-induced. We will avoid adding additional routine medication on admission. Continue telmisartan 30 mg p.o. every morning. Hydralazine 25 mg p.o. q4h PRN for sBP > 180. (3) DM (diabetes mellitus), type 2: Repeat HbA1c with a.m. labs, previously 6.9 in January 2019. Hold metformin during admission (IV contrast given for CTA). NovoLog for correction factor only. (4) AF (paroxysmal atrial fibrillation): Currently in normal sinus rhythm. Continue warfarin 7.5 mg p.o. at bedtime. (5) Factor V Leiden mutation: (6) Sleep apnea: May use own BiPAP. (7) Hyperlipidemia: Repeat lipid panel with a.m. labs for cardiac risk reduction. Continue rosuvastatin 5 mg p.o. twice a week Admission and Anticipated Discharge Date Admission Date: December 14, 2019 History of Present Illness Chief Complaint: Chest pain Primary Care Provider: NO PCP Ty Fernandez is a 64-year-old male with type 2 diabetes, obstructive sleep apnea, hyperlipidemia and family history of cardiovascular disease who presents to the ER with chest pain or shortness of breath. Chest pain with shortness of breath started at rest while lying in bed after going to the bathroom. Aching sensation. No worse on exertion. Severity 3/10. Started 6 AM and lasted till 9AM. Pain did not improve or progress during that time. Eventually relieved with nitroglycerin in the ER. No radiation. No associated diaphoresis. 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 No leg swelling, presyncope, syncope, palpitations or claudication. He has no known history of coronary artery disease. Prior to this his exercise tolerance was relatively poor with him breathing heavily on walking up 1 flight of stairs however he does not need to stop. 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 In the past this is been associated with very high increases with his blood pressure and associated chest pain radiating to his left arm. He has paroxysmal atrial flutter although had a previous ablation for this many years ago, without significant issues since. He remains on warfarin for anticoagulation. In addition he takes aspirin for primary cardiovascular prevention. He is compliant using BiPAP at night for obstructive sleep apnea. Allergies Allergy/AdvReac Type Severity Reaction Status Date / Time nickel Allergy Mild RASH Verified 12/14/19 08:51 latex AdvReac Mild RASH, Verified 12/14/19 08:51 ITCHING oxycodone AdvReac Mild rapid hr Verified 12/14/19 08:51 Home Medications Home Medications Medication Instructions Recorded Confirmed Type glucosamine HCl 750 mg tablet 1,500 mg PO HS tab 10/12/18 12/14/19 History aspirin 81 mg tablet,delayed 81 mg PO BID tab 02/01/19 12/14/19 History release diphenhydramine HCl 25 mg tablet 25 mg PO HS tab 02/01/19 12/14/19 History metformin 500 mg PO QAM 04/25/19 12/14/19 History bupropion HCl 150 mg PO QAM 12/14/19 12/14/19 History rosuvastatin 5 mg PO 2XWK 12/14/19 12/14/19 History sertraline 100 mg PO HS 12/14/19 12/14/19 History telmisartan 30 mg PO QAM 12/14/19 12/14/19 History warfarin 7.5 mg PO HS 12/14/19 12/14/19 History Past Med/Surg History Medical History AF (paroxysmal atrial fibrillation) Cellulitis of left foot Depression with anxiety DM (diabetes mellitus), type 2 DVT (deep venous thrombosis) Factor V Leiden mutation HTN (hypertension) Hyperlipidemia Sleep apnea Trigeminal neuralgia Surgical History Hx of carpal tunnel repair Hx of knee surgery Hx of oral surgery Hx of shoulder replacement Hx of shoulder surgery Hx of sinus surgery Family History Father Myocardial infarction Denies family history of Ovarian cancer Prostate cancer Breast cancer Colorectal cancer Social History Smoking Status: Former smoker Tobacco Type: Cigarettes Hx Alcohol Use: No Hx Substance Use: No Preferred Language: [place] Tug Master Required: No Beliefs That Will Affect Care: None marital status: Current Living Situation: Spouse current occupational status: employed Other Information That Helps Us Care for You: No Feels Safe at Home: Yes Safety Concerns: Feels Safe At This Time caffeine: Yes Dental Care, Regularly: No Physical Activity Frequency: 1-2 Times per Week Seatbelt Use: always Sunscreen Use: No Review of Systems Review of Systems: All systems reviewed & are unremarkable except as noted in HPI & below Physical Exam Constitutional: well developed and + morbidly obese; no acute distress Eyes: + anicteric sclerae; normal pupil size ENMT: external ear and nose normal, oropharynx normal Neck: trachea midline, no thyromegaly Respiratory: normal respiratory effort, lungs clear to auscultation Cardiovascular: Rate/Rhythm: regular rate and regular rhythm Heart Sounds: no murmur Extremities: normal capillary refill and + pedal edema (Trace bilaterally to mid shins); no calf tenderness Gastrointestinal (Abdomen): normal bowel sounds, soft, nontender, no hepatosplenomegaly Musculoskeletal: no cyanosis or clubbing, extremities motor strength 5/5 Skin: no rashes, warm and dry Neurologic: moves all extremities and awake; not confused Psychiatric: A+Ox3, euthymic affect Lymphatic: no cervical or axillary lymphadenopathy Results & Data Results & Data ([facility]) Vital Signs (Past 12 Hours) Vital Signs Temp Pulse Pulse Resp BP BP Pulse Ox 12/14/19 12:33 67 20 167/108 H 96 12/14/19 12:15 64 16 174/108 H 95 12/14/19 11:20 67 20 174/102 H 97 12/14/19 11:05 62 16 161/84 H 95 12/14/19 10:44 54 L 20 178/93 H 95 12/14/19 10:02 61 20 149/87 H 94 12/14/19 09:03 66 20 198/128 H 96 12/14/19 08:45 96 12/14/19 08:04 36.5 C 66 20 202/110 H 94 Diagnostic Findings XR chest 1V portable IMPRESSION: Cardiomegaly. Pulmonary vascular congestion without overt pulmonary edema. CT ANGIOGRAPHY OF THE CHEST, PULMONARY EMBOLUS PROTOCOL IMPRESSION: 1. No pulmonary embolus identified although lower lobe pulmonary arteries suboptimally assessed given respiratory motion. 2. Moderate cardiomegaly. 3. No acute findings within the chest. 4. Fatty liver. ECG Indication: chest pain Rate (beats per minute): 65 Findings: no acute ischemic change Comparison ECG Date: from (September 29, 2017) Change: no significant change Code Status & VTE Plan Code Status Full VTE Prophylaxis Plan VTE Prophylaxis will be ordered: No PG Care Time/CCT Total # of Minutes Spent Total Time Spent with Patient: Total time spent is greater than 50% in coordination of care (as documented) at patient's floor/unit and/or counseling patient: Coding Level of Care Code 73401 OBS Care - Level 3 Diagnoses Chest pain R07.9 Hypertensive urgency I16.0 DM (diabetes mellitus), type 2 E11.9 AF (paroxysmal atrial fibrillation) I48.0 Factor V Leiden mutation D68.51 Sleep apnea G47.30 Hyperlipidemia E78.5
[2019-12-14] MEDS ORDERED: ASPIRIN 81 MG CHEW PO STA (13:51)
--- NOTE | 2019-12-14 15:14 | Electrocardiogram Report ---
Test Reason : Blood Pressure : / mmHG Vent. Rate : 065 BPM Atrial Rate : 065 BPM P-R Int : 174 ms QRS Dur : 096 ms QT Int : 408 ms P-R-T Axes : 012 050 032 degrees QTc Int : 424 ms Normal sinus rhythm Normal ECG When compared with ECG of 29-SEP-2017 08:35, No significant change was found Confirmed by Thompson Hankins ([id number]) on 12/14/2019 3:14:42 PM Referred By: REFERRED SELF Confirmed By:Thompson Hankins
[2019-12-14] MEDS ORDERED: DEXTROSE 50% 50 ML SYRINGE IV PRN (15:37)
[2019-12-14] MEDS ORDERED: CARBOHYDRATES FOR HYPOGLYCEMIA PO PRN (15:37)
[2019-12-14] MEDS ORDERED: ONDANSETRON INJ 2 MG/ML 2 ML VIAL IV PRN (15:37)
[2019-12-14] MEDS ORDERED: POLYETHYLENE (MIRALAX) 17 GM PACK PO PRN (15:37)
[2019-12-14] MEDS ORDERED: GLUCOSE 10 TABS/TUBE PO PRN (15:37)
[2019-12-14] MEDS ORDERED: GLUCAGON FOR INJ 1 MG VIAL SQ PRN (15:37)
[2019-12-14] MEDS ORDERED: GLUCOSE 40% GEL 15 GM TUBE PO PRN (15:37)
[2019-12-14] MEDS: ACETAMINOPHEN 325 MG TAB PO PRN (17:24)
[2019-12-14] MEDS: INSULIN ASPART 100 UNITS/ML 3 ML PEN SC SCH ×2 (18:01→20:36)
[2019-12-14] MEDS: ASPIRIN 81 MG ECTAB PO SCH (20:23)
[2019-12-14] MEDS ORDERED: GLUCOSAMINE HCL 1500 MG PO SCH (21:00)
[2019-12-14] MEDS ORDERED: WARFARIN SOD 7.5 MG TAB PO SCH (21:00)
[2019-12-14] MEDS ORDERED: SERTRALINE HCL 100 MG TABLET PO SCH (21:00)
[2019-12-15] MEDS ORDERED: ALUMINUM/MAGNESIUM SUSP 30 ML UDC PO PRN (03:55)
[2019-12-15] MEDS: ACETAMINOPHEN 325 MG TAB PO PRN (04:39)
[2019-12-15 07:25] LABS: Hematocrit (blood only) 48.5 % (42-52); Hemoglobin 16.3 g/dL (14.0-18.0); Mean Corpuscular Hemoglobin 31.5 pg (25-34); Mean Corpuscular Hgb Conc 33.6 g/dL (32-36); Mean Corpuscular Volume 93.8 fL (80-100); Mean Platelet Volume 11.8 fL (7.4-10.4); Platelet Count 169 K/uL (130-400); RDW Coefficient of Variation 13.4 % (11.5-14.5); RDW Standard Deviation 46.1 fL (36.4-46.3); Red Blood Count 5.17 M/uL (4.7-6.1); White Blood Count 6.66 K/uL (4.8-10.8)
[2019-12-15 07:34] LABS: INR 2.1 (0.9-1.1); Prothrombin Time 20.9 Seconds (9.0-12.0)
[2019-12-15] MEDS: INSULIN ASPART 100 UNITS/ML 3 ML PEN SC SCH ×2 (07:38→12:43)
[2019-12-15 07:53] LABS: Blood Urea Nitrogen 17 mg/dl (7-18); Calcium 9.2 mg/dl (8.5-10.1); Carbon Dioxide 28 mmol/L (21-32); Chloride 103 mmol/L (98-107); Cholesterol 177 mg/dl (0-200); Creatinine Clr Calc Pharmacy 95.4 ml/min; Est GFR (Non-African American) 70.8; Glucose 126 mg/dl (70-99); Potassium 4.2 mmol/L (3.5-5.1); Sodium 139 mmol/L (136-145); Triglycerides 241 mg/dl (0-150); VLDL Cholesterol 48 mg/dl
[2019-12-15 07:58] LABS: Chol HDL Ratio 5; HDL Cholesterol 38 mg/dl; LDL Cholesterol Calculated 91 mg/dl; Troponin I < 0.015 ng/ml (0-0.045)
[2019-12-15] MEDS ORDERED: BuPROPion XL 150 MG TABCR PO SCH (09:00)
[2019-12-15] MEDS ORDERED: TELMISARTAN 20 MG TAB PO SCH (09:00)
[2019-12-15 09:35] LABS: Estimated Average Glucose 134 mg/dl; Hemoglobin A1C 6.3 % (4.5-5.6)
[2019-12-15] MEDS: ASPIRIN 81 MG ECTAB PO SCH (12:07)
--- NOTE | 2019-12-15 15:05 | XCELERA ---
[id number]
--- NOTE | 2019-12-15 16:19 | Discharge Summary ---
Date of Service December 15, 2019 Admission HPI Per Admitting Provider Ty Fernandez is a 64-year-old male with type 2 diabetes, obstructive sleep apnea, hyperlipidemia and family history of cardiovascular disease who presents to the ER with chest pain or shortness of breath. Chest pain with shortness of breath started at rest while lying in bed after going to the bathroom. Aching sensation. No worse on exertion. Severity 3/10. Started 6 AM and lasted till 9AM. Pain did not improve or progress during that time. Eventually relieved with nitroglycerin in the ER. No radiation. No associated diaphoresis. 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 No leg swelling, presyncope, syncope, palpitations or claudication. He has no known history of coronary artery disease. Prior to this his exercise tolerance was relatively poor with him breathing heavily on walking up 1 flight of stairs however he does not need to stop. 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 In the past this is been associated with very high increases with his blood pressure and associated chest pain radiating to his left arm. He has paroxysmal atrial flutter although had a previous ablation for this many years ago, without significant issues since. He remains on warfarin for anticoagulation. In addition he takes aspirin for primary cardiovascular prevention. He is compliant using BiPAP at night for obstructive sleep apnea. Principal Diagnosis Chest pain Discharge Exam Constitutional WD/WN, vitals as above Respiratory normal respiratory effort, lungs clear to auscultation Cardiovascular RRR, no murmur, no edema Gastrointestinal (Abdomen) normal bowel sounds, soft, nontender, no hepatosplenomegaly Musculoskeletal no cyanosis or clubbing, extremities motor strength 5/5 Skin no rashes, warm and dry Neurologic moves all extremities and awake Psychiatric A+Ox3, euthymic affect Discharge Data Allergies Allergy/AdvReac Type Severity Reaction Status Date / Time nickel Allergy Mild RASH Verified 12/14/19 08:51 latex AdvReac Mild RASH, Verified 12/14/19 08:51 ITCHING oxycodone AdvReac Mild rapid hr Verified 12/14/19 08:51 Consultations 12/14/19 12:56 ED Decision to Admit Stat Ordered Studies 12/14/19 09:20 CT angio chest PE protocol Stat Hospital Course (1) Chest pain: Normal stress test. Patient admits to being under quite a lot of stress lately. He also was experiencing high blood pressures while here 170s - 190s. He has not had elevated blood pressures at home, reports they run around 125- 135/80s. Trop neg x 3 (2) Hypertensive urgency: As above Continue telmisartan 40 mg p.o. every morning - discharge instructions to increase to 80 mg if continuing to experience elevated pressures. Could consider adding a beta karthik to help both anxiety and blood pressure if he continues to have issues (3) DM (diabetes mellitus), type 2: A1c 6.3 Held metformin during admission (IV contrast given for CTA). NovoLog for correction factor only. (4) AF (paroxysmal atrial fibrillation): Normal sinus rhythm. Continue warfarin 7.5 mg p.o. at bedtime. (5) Factor V Leiden mutation: (6) Sleep apnea: May use own BiPAP. (7) Hyperlipidemia: Triglycerides 241, LDL 91, HDL 38 Continue rosuvastatin 5 mg p.o. twice a week (8) Fatty liver: Discussed findings with patient and lifestyle interventions. He does not drink alcohol. Follow up with pcp Total Time Total Time Spent Total Time Spent (In Minutes): greater than 30 minutes Discharge Plan Discharge Items Patient Disposition: Home - Self-Care Reason For Visit: CHEST PAIN, RULE OUT AR Discharge Diagnosis: Chest pain, negative stress echo Hypertension Stress/anxiety Condition on Discharge: Good Goals: control blood pressure follow up with PCP Activity: Resume your previous activity Non-emergency contact: Primary Care Provider Call non-emergency contact if: you have any medication questions and your symptoms worsen Follow-up/Referrals: Rain Sumner CRNP [Nurse Practitioner] - 12/22/19 11:30 am (one week, blood pressure check, can be with any provider at [facility]. Your appointment will be with Dr Champagne. If you need to change this appointment, please call [phone].) PCP,NO [Primary Care Provider] - Diet: Carb Consistent or DM2 and Heart Healthy Addtl Attending Provider Instructions: Medications: - TELMISARTAN: new script to take 40mg daily, prescribed 40mg tablets so you can just take one tablet, see below for instruction Chest pain, hypertension, stress/anxiety no evidence of cardiac ischemia on blood work, negative stress echocardiogram BP has been elevated here, certainly it could be due to stress follow blood pressure at home, if it is consistently greater than 140 on top or 90 on the bottom, you should increase the Telmisartan to 80mg daily (two 40mg tabs) follow a low sodium diet, eat less than 2gm a day follow up with [facility] at [facility], hospice patient care secretary will get you appt with one of their providers Pending Studies at Discharge: No Stand-Alone Forms: My [facility] [employer], Smoking Cessation Medications and DC Order Prescriptions: New valsartan 40 mg tablet 40 mg PO DAILY Qty: 30 RF: 3 Continued glucosamine HCl 750 mg tablet 1,500 mg PO HS RF: 0 aspirin 81 mg tablet,delayed release (DR/EC) 81 mg PO BID RF: 0 diphenhydramine HCl 25 mg tablet 25 mg PO HS RF: 0 metformin 500 mg tablet extended release 24hr 500 mg PO QAM RF: 0 warfarin 7.5 mg tablet 7.5 mg PO HS RF: 0 sertraline 100 mg tablet 100 mg PO HS RF: 0 rosuvastatin 5 mg tablet 5 mg PO 2XWK RF: 0 bupropion HCl 300 mg tablet extended release 24 hr 150 mg PO QAM RF: 0 Discontinued telmisartan 20 mg tablet 30 mg PO QAM RF: 0 Discharge Orders: Discharge Order (Routine); Ordered 12/15/19 Ordered By: Med Garcia/Other Patient Handouts: Managing Type 2 Diabetes Admission Data Admit Date/Time: 12/14/19 13:17 Attending Provider: Med Bowers Admit Provider: Isacc Higgins Primary Care Provider: PCP,NO Other Providers: Isacc Higgins Other Interventions: Discharge Summary Assessment (RN) Last Done: 12/15/19 15:33 Supervising Physician Co-Signing Physician Notes Patient seen and examined on the day of discharge. I agree with the discharge summary by Yesenia OSPINA. I have reviewed the chart including labs, imaging and plans for discharge. patient doing well, stress test negative, he feels ready to go home discussed elevated BP, he says he is feeling stressed, BP typically better at home, he monitors it often he says he is actually taking Valsartan 40mg told him to increase to 80mg if his BP is > 140/90 will get him scheduled with his PCP who he has not seen in some time - Chest pain, elevated BP negative stress echocardiogram for BP, will continue Valsartan 40mg daily, increase to 80mg if BP elevated follow low sodium diet follow up closely with PCP Coding Level of Care Code D/C Day Management >30 mins Diagnoses Chest pain R07.9 Hypertensive urgency I16.0 DM (diabetes mellitus), type 2 E11.9 AF (paroxysmal atrial fibrillation) I48.0 Factor V Leiden mutation D68.51 Sleep apnea G47.30 Hyperlipidemia E78.5 Fatty liver K76.0
[2019-12-17] MEDS ORDERED: ROSUVASTATIN CALCIUM 5 MG TAB PO SCH (09:00)
== END 2019-12-15 16:06 | disposition home or self-care (01) ==
LOC: ED 08:01 → 2W 08:01 → SUATTDRO 13:17 → 2W 14:22